=== PATIENT | female | born 1995 | race Caucasian/White ===

== ENCOUNTER 2016-07-16 18:03 | Emergency (ER) | payer BC ==
[2016-07-16 19:20] LABS: Hematocrit 40 % (35-47); Hemoglobin 13.9 g/dl (12.0-16.0); Mean Corpuscular HGB Conc 34 g/dl (31-36); Mean Corpuscular Hemoglobin 30 pg (27-31); Mean Corpuscular Volume 87 fL (80-97); Mean Platelet Volume 9 um3 (7.4-10.4); Red Blood Count 4.65 10^6/ul (4.0-5.4); Red Cell Distribution Width 13 % (10.5-15)
[2016-07-16 19:27] LABS: ALT 9 U/L (7-52); AST 16 U/L (13-39); Albumin 4.6 g/dL (3.2-5.2); Alkaline Phosphatase 61 U/L (34-104); Anion Gap 6 mmol/L (2-11); BUN/Creatinine Ratio 17.3 (8-20); Blood Urea Nitrogen 14 mg/dL (6-24); C Reactive Protein < 1.00 mg/L (< 5.00); CO2 Carbon Dioxide 26 mmol/L (22-32); Calcium 9.5 mg/dL (8.6-10.3); Chloride 105 mmol/L (101-111); EGFR African American 117.1 (>60); EGFR Non-African American 91.1 (>60); Globulin 3.1 g/dL (2-4); Glucose 85 mg/dL (70-100); Potassium 3.6 mmol/L (3.5-5.0); Sodium 137 mmol/L (133-145); Total Protein 7.7 g/dL (6.4-8.9)
--- NOTE | 2016-07-16 19:58 | ED ---
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 She has never had this pain before. She denies fever, chills, N/V/D. Her LMP was Jun 3 and irregular. She practices safe sex in a monogamous relationship and denies vaginal discharge. No urinary symptoms. Up until this event she felt completely normal. She denies viral illness, or decreased appetite. - History of Current Complaint Chief Complaint: EDAbdPain Stated Complaint: RIGHT SIDE ABD PAIN Time Seen by Provider: 07/16/16 18:43 Hx Obtained From: Patient ?: No Onset/Duration: Sudden Onset Timing: Constant Severity Initially: Severe Severity Currently: Severe Pain Intensity: 7 Location: Discrete At: RLQ Radiates: No Character: Sharp Aggravating Factor(s): Other: - straightening her right leg Alleviating Factor(s): Other: - hip flexion Associated Signs and Symptoms: Positive: Negative Allergies/Adverse Reactions: Allergies Allergy/AdvReac Type Severity Reaction Status Date / Time No Known Allergies Allergy Verified 07/16/16 18:05 PMH/Surg Hx/FS Hx/Imm Hx Previously Healthy: Yes Infectious Disease History: No Infectious Disease History: Denies: Traveled Outside the [place] in Last 30 Days - Family History Known Family History: Positive: None - Social History Occupation: Employed Full-time Lives: With Family Alcohol Use: Rare Substance Use Type: Reports: None Smoking Status (MU): Never Smoked Tobacco Review of Systems Negative: Chills Negative: Chest Pain Negative: Shortness Of Breath Positive: Abdominal Pain - RLQ. Negative: Vomiting, Diarrhea, Nausea Positive: no symptoms reported All Other Systems Reviewed And Are Negative: Yes Physical Exam Triage Information Reviewed: Yes Vital Signs On Initial Exam: Initial Vitals Temp Pulse Resp BP Pulse Ox 98.5 F 78 16 130/75 100 07/16/16 18:05 07/16/16 18:05 07/16/16 18:05 07/16/16 18:05 07/16/16 18:05 Vital Signs Reviewed: Yes Appearance: Positive: Well-Appearing - Patient is resting comfortably and sits up quickly and easily upon exam, No Pain Distress, Well-Nourished Skin: Positive: Warm, Skin Color Reflects Adequate Perfusion, Dry, Soft Head/Face: Positive: Normal Head/Face Inspection Eyes: Positive: EOMI, JOB, Conjunctiva Clear ENT: Positive: Hearing grossly normal Neck: Positive: Supple, Nontender, No Lymphadenopathy Respiratory/Lung Sounds: Positive: Clear to Auscultation, Breath Sounds Present Cardiovascular: Positive: RRR Abdomen Description: Positive: Soft. Negative: Nontender - mild TTP RLQ; non- tender with hip flexion and internal rotation; neg. Rovsing, Obdurator signs, CVA Tenderness (R), CVA Tenderness (L), Distended, Guarding, Hepatomegaly, Peritoneal Signs, Splenomegaly Bowel Sounds: Positive: Present Musculoskeletal: Positive: Strength/ROM Intact. Negative: Edema Left, Edema Right Neurological: Positive: Sensory/Motor Intact, Alert, Oriented to Person Place, Time, NV Bundle Intact Distally, Normal Gait Psychiatric: Positive: Affect/Mood Appropriate AVPU Assessment: Alert Diagnostics - Vital Signs Vital Signs Temp Pulse Resp BP Pulse Ox 07/16/16 19:06 68 97 07/16/16 18:05 98.5 F 78 16 130/75 100 - Laboratory Lab Results: Lab Results 07/16/16 07/16/16 Range/Units 19:00 19:00 WBC 10.0 (3.5-10.8) 10^3/ul RBC 4.65 (4.0-5.4) 10^6/ul Hgb 13.9 (12.0-16.0) g/dl Hct 40 (35-47) % MCV 87 (80-97) fL MCH 30 (27-31) pg MCHC 34 (31-36) g/dl RDW 13 (10.5-15) % Plt Count 249 (150-450) 10^3/ul MPV 9 (7.4-10.4) um3 Neut % (Auto) 65.4 (38-83) % Lymph % (Auto) 25.8 (25-47) % [place] % (Auto) 7.8 (1-9) % Eos % (Auto) 0.4 (0-6) % Baso % (Auto) 0.6 (0-2) % Absolute Neuts (auto) 6.5 (1.5-7.7) 10^3/ul Absolute Lymphs (auto) 2.6 (1.0-4.8) 10^3/ul Absolute Monos (auto) 0.8 (0-0.8) 10^3/ul Absolute Eos (auto) 0 (0-0.6) 10^3/ul Absolute Basos (auto) 0.1 (0-0.2) 10^3/ul Absolute Nucleated RBC 0 10^3/ul Nucleated RBC % 0 Sodium 137 (133-145) mmol/L Potassium 3.6 (3.5-5.0) mmol/L Chloride 105 (101-111) mmol/L Carbon Dioxide 26 (22-32) mmol/L Anion Gap 6 (2-11) mmol/L BUN 14 (6-24) mg/dL Creatinine 0.81 (0.51-0.95) mg/dL Est GFR ( Amer) 117.1 (>60) Est GFR (Non-Af Amer) 91.1 (>60) BUN/Creatinine Ratio 17.3 (8-20) Glucose 85 (70-100) mg/dL Calcium 9.5 (8.6-10.3) mg/dL Total Bilirubin 0.70 (0.2-1.0) mg/dL AST 16 (13-39) U/L ALT 9 (7-52) U/L Alkaline Phosphatase 61 (34-104) U/L C-Reactive Protein < 1.00 (< 5.00) mg/L Total Protein 7.7 (6.4-8.9) g/dL Albumin 4.6 (3.2-5.2) g/dL Globulin 3.1 (2-4) g/dL Albumin/Globulin Ratio 1.5 (1-3) Result Diagrams: 07/16/16 19:00 07/16/16 19:00 Lab Statement: Any lab studies that have been ordered have been reviewed, and results considered in the medical decision making process. - Ultrasound No standard instances Ultrasound Interpretation: No Acute Changes Ultrasound Interpretation Completed By: Radiologist Re-Evaluation - Re-Evaluation First Eval Re-Evaluation Time: 21:45 Change: Improved - Patient's pain has resolved Abdominal Pain Fem Course/Dx - Course Course Of Treatment: Patient has an atypical presentation for appendicitis, so I reviewed the signs and symptoms to watch for and to immediately return to the ED if these present. We reviewed her normal labs and negative ultrasound and her pain has completely resolved. - Diagnoses Differential Diagnosis: Positive: Appendicitis, Bowel Obstruction, Constipation , Ovarian Cyst, Pancreatitis, , Renal Colic Provider Diagnoses: Abdominal pain - Provider Notifications Discussed Care Of Patient With: Dr. Gonzales, ED attending. Time Discussed With Above Provider: 21:50 Discharge - Discharge Plan Condition: Stable Disposition: HOME Patient Education Materials: Acute Abdominal Pain (ED) Referrals: Walter Palacio [employer]ER [Primary Care Provider] - Additional Instructions: Please follow-up with your primary care if your symptoms persist. Return to the emergency department if your symptoms worsen.
[2016-07-16 20:13] LABS: Urine Bilirubin Negative (Negative); Urine Glucose Negative (Negative); Urine Nitrite Negative (Negative)
--- NOTE | 2016-07-16 21:27 | RAD ---
INDICATION: Pelvic pain. COMPARISON: None TECHNIQUE: Longitudinal and transverse transabdominal scans of the pelvis were obtained. FINDINGS: Uterus: The uterus is normal in size. There are no focal masses. The uterus measures 9.5 x 5.0 x 5.1 cm. Endometrial thickness: The endometrial thickness is measured at 1.3 cm. . Free fluid: Free fluid in the cul-de-sac and both adnexa . Ovaries: The ovaries are normal in size. The right ovary measures 4.3 x 2.6 x 4.8 cm. The left ovary measures 4.3 x 2.1 x 3.9 cm. . Doppler interrogation demonstrates flow to each ovary. Other: None IMPRESSION: MODERATE FREE FLUID LIKELY REPRESENTING PHYSIOLOGIC FREE FLUID. NORMAL UTERUS AND OVARIES .
[2016-07-16 22:08] VITALS: BP 120/66
== END 2016-07-16 22:10 | disposition home or self-care (01) ==
LOC: ED 18:03
DX: R10.31 Right lower quadrant pain (principal)
CPT/HCPCS: 36415; 76856; 80053; 81003; 85025; 86140; 99282